=== PATIENT | female | born 1990 | race Caucasian/White ===

== ENCOUNTER 2022-12-01 21:03 | Emergency (ER) | payer MEDICAID, SELFPAY ==
[2022-12-01 21:14] VITALS: BP 182/115; PULSE 101; RESP 18; TEMP 36.8; O2SAT 99; BMI 53.2
--- NOTE | 2022-12-01 21:34 | ED_ITS ---
HPI - General Adult General Chief complaint: Urogenital Problems, Female Stated complaint: Tip of condom broke off inside Time Seen by Provider: 12/01/22 21:06 History of Present Illness HPI narrative: Patient is a 32-year-old female with significantly elevated BMI who presents after using a condom covered dildo for sexual stimulation and concerned that it tip may have broken off of the condom. At this happen last week as well. Once in assessment. She has no vaginal bleeding or discharge. She has been feeling well. Related Data Allergies Allergy/AdvReac Type Severity Reaction Status Date / Time Penicillins Allergy Verified 12/01/22 21:21 Exam Narrative: Exam Narrative: Speculum exam with nurse May present with good visualization shows no evidence of foreign body there is some whitish material in the vaginal vault but no plastic or latex appearing material. Const: Vital Signs, click to edit/add: Vital Signs - 24 hr 12/01/22 21:14 Temperature 98.2 F Pulse Rate [Pulse Oximeter] 101 H Respiratory Rate 18 Blood Pressure [Le ft Upper Arm] 182/115 H Pulse Oximetry 99 Oxygen Delivery Me thod Room Air Course Vital Signs Vital signs: Initial Vital Signs Temperature 98.2 F 12/01/22 21:14 Temperature Source Temporal Artery Scan 12/01/22 21:14 Pulse Rate 101 H 12/01/22 21:14 Pulse Rhythm Regular 12/01/22 21:14 Respiratory Rate 18 12/01/22 21:14 Blood Pressure 182/115 H 12/01/22 21:14 Blood Pressure Mean 137 H 12/01/22 21:14 Blood Pressure Position Sitting 12/01/22 21:14 Pulse Oximetry 99 12/01/22 21:14 Oxygen Delivery Method Room Air 12/01/22 21:14 Vital Signs Temperature 98.2 F 12/01/22 21:14 Pulse Rate 101 H 12/01/22 21:14 Respiratory Rate 18 12/01/22 21:14 Blood Pressure 182/115 H 12/01/22 21:14 Pulse Oximetry 99 12/01/22 21:14 Oxygen Delivery Method Room Air 12/01/22 21:14 Temperature 98.2 F 12/01/22 21:14 Pulse Rate 101 H 12/01/22 21:14 Respiratory Rate 18 12/01/22 21:14 Blood Pressure 182/115 H 12/01/22 21:14 Pulse Oximetry 99 12/01/22 21:14 Oxygen Delivery Method Room Air 12/01/22 21:14 Medical Decision Making MDM Narrative Medical decision making narrative: At this point I recommend the patient she takes several Sitz baths, she could try ice a couple of douches to cleanse the vaginal area. If she has any discharge or odor then she could follow up with primary care or [facility]. At this point I do not detect any foreign matter however and observation that could be appropriate. Discharge Plan Discharge Clinical Impression: Foreign body in vagina Patient Disposition: Home, Self-Care Condition: Stable Additional Instructions: Would recommend Sitz baths and perhaps a couple of douches to cleanse the vaginal area. If notices any odor or other abnormality then recheck with primary care would be recommended, no foreign body noted on speculum exam tonight Activity Level: No Restrictions Discharge Diet: Regular Follow Up/Referrals: Tamela Gillis DO [Primary Care Provider] - Stand Alone [facility] Info Inst[facility]
== END 2022-12-01 22:07 | disposition home or self-care (01) ==
LOC: ED 21:52
PROVIDERS: Emergency Provider Family Medicine; PCP Family Medicine
DX: T19.2XXA Foreign body in vulva and vagina, initial encounter (principal)
CPT/HCPCS: 99282; 99284

== ENCOUNTER 2023-05-19 20:29 | Emergency (ER) | payer MEDICAID, SELFPAY ==
[2023-05-19 21:24] VITALS: BP 150/97; PULSE 78; RESP 18; TEMP 37.1; O2SAT 99; BMI 53.2
--- NOTE | 2023-05-19 23:12 | CRLHL7_ITS ---
For Patients: As a result of the Century Cures Act, medical imaging exams and procedure reports are released immediately into your electronic medical record. You may view this report before your referring provider. If you have questions, please contact your health care provider. INDICATION: Cough TECHNIQUE: Chest 2 view. Permanently recorded images are archived. COMPARISON: None. FINDINGS: Cardiovascular and mediastinum: Heart size and vasculature are normal in caliber and appearance. Lungs and pleural spaces: The lungs are clear. No pleural effusion or pneumothorax. Bones and soft tissues: Unremarkable for age. IMPRESSION: No evidence of an acute pulmonary process. Dictated by Alek Dangelo MD @ 05/20/2023 1:18:43 AM (Electronically Signed)
[2023-05-19 23:40] LABS: Basophils Percent Auto 0.3 % (0.0-3.0); Eosinophils Percent Auto 2.9 % (0.0-7.0); Hemoglobin* 14.9 gm/dL (12.0-16.0); Immature Granulocytes Pct Auto 0.7 %; Lymphocytes Percent Auto 27.1 % (20-44); Mean Corpuscular HGB Conc 32 gm/dL (32-36); Mean Corpuscular Hemoglobin 28 pg (26-34); Mean Corpuscular Volume 87 fL (80-100); Platelet Count* 293 K/uL (140-440); Red Blood Count 5.28 m/uL (4.00-5.20); White Blood Count* 11.46 K/uL (4.50-11.00)
[2023-05-19 23:44] LABS: Slide Review Reflex No
[2023-05-19 23:51] LABS: Chloride* 105 mmol/L (96-114)
[2023-05-19 23:52] LABS: Albumin* 4.3 g/dL (3.3-5.0); Potassium* 3.8 mmol/L (3.6-5.1); Sodium* 142 mmol/L (135-149)
[2023-05-19 23:54] LABS: Anion Gap 14 mEq/L (7-15); Bilirubin Total* 0.5 mg/dL (0.1-1.5); Carbon Dioxide* 23 mmol/L (20-32); Creatinine* 0.7 mg/dL (0.5-1.5); Est. Creatinine Clearance* 113.16; Estimated Glomerular Filt Rate 116 ml/min
[2023-05-19 23:55] LABS: Alanine Aminotransferase* 19 U/L (4-35); Alkaline Phosphatase* 86 U/L (40-150); Aspartate Amino Transferase* 20 U/L (12-35); Blood Urea Nitrogen* 11 mg/dL (5-24); Calcium* 9.6 mg/dL (8.4-10.6); Glucose* 99 mg/dL (60-115); HCG Qualitative Serum* Negative (Negative); Total Protein* 7.9 g/dL (6.0-8.3)
--- NOTE | 2023-05-20 00:27 | ED_ITS ---
HPI - General Adult General Date Seen: 05/19/23 Chief complaint: Unspecified Complaint, Adult Stated complaint: Overexerted herself and feels shakey and jittery Time Seen by Provider: 05/19/23 22:04 History of Present Illness HPI narrative: This is a pleasant 33-year-old female with a past medical history that includes asthma (it sounds like activity induced, only mild). She presents to the ER today with concern that she is very shaky. She also has a cough, headache, nausea, frequent urination. History is provided from the patient in non chronological order. However will be listed chronologically here. Patient has had symptoms of cough and URI for about 3 weeks. Symptoms have included cough, largely nonproductive, nasal congestion, mild sore throat. It sounds like the cough has been persistent for the past few weeks and just isn't getting better. She is not really short of breath. No hemoptysis. No production of sputum. No definite known exposure to coronavirus or other specific infection. Recently,one of the patient's close friends (her ?adoptive mother?) fell ill. It sounds like her adoptive mother abruptly had severe illness and became critically ill, suffered brain damage,. It sounds like she was treated in the hospital for IV antibiotics and it sounds like she had meningitis. However it sounds like she ultimately had a severe brain injury so was transition to comfort care. She 1 week ago today. The patient did go to visit her while she was in the hospital at the [facility] in [place]. Apparently on the date that the patient visited her ?adoptive mother? her adoptive mother was critically ill, but not intubated. There were no clear exposure precautions and the patient was not required to wear a mask or gown. Of the patient does not know what form of meningitis is was that play here. She has not been told that she needs any post exposure prophylaxis. It sounds like she has been a little bit worried, almost subconsciously, all week that she might develop meningitis. It sounds like she was feeling pretty well yesterday morning on Friday morning. The patient took her niece to the world's largest candy store on Friday. They bought a lot of candy and ate a lot of sugary food. They also went to a cafe for lunch yesterday where she ordered 3 specialty coffee drinks for Halloween/fall. The patient does not normally drink much caffeine but drank 3 caffeinated cups of coffee. Yesterday afternoon she began to feel quite shaky. She has a difficult time describing her symptoms but it sounds like a vague shaky or vibrating feeling in her torso and in her body. It is not really palpi tations. It is not really weakness. Is not really shivering or shakes. It is not really clearly rigors or chills. She does feel shaky. She went to the [facility] urgent care in [place] today. She was seen for the cough but not tested with chest x-ray or COVID. She was given prescriptions for prednisone and albuterol. She was told that she probably still has some residual inflammation in her chest from her recent cold. She was worried that she had caused hyperglycemia because of all the sugary food she ate so she tried to do an exercise regimen and drink lots of water to flush out hyperglycemia. She is able to sleep last night. When she woke this morning early she felt like she had to urinate. She got up to go to the bathroom but then was cold, because her house was chilled, and had to take hot shower. She was able to go to work today but was just feeling shaky. She left work early at about 1:00 p.m. and is felt shaky all afternoon. She still has the ongoing cough. No nasal congestion. No sore throat. No definite fever. Today she also developed a mild headache. On the way here to the ER she did have an episode of nonbilious, nonbloody emesis (water and pizza that she had eaten). Now that she is here in the ER she has only a minimal headache. No ongoing nausea. Related Data Allergies Allergy/AdvReac Type Severity Reaction Status Date / Time Penicillins Allergy Mild Hives Verified 05/19/23 21:26 [facility] Social History Smoking Status: Current every day smoker What tobacco products do you use: cigarettes Do you use any of these nicotine containing products: None Second hand tobacco smoke exposure: No How often do you have a drink containing alcohol: 2-4 times a month How many standard drinks containing alcohol do you have on a typical day: 3 or 4 How often do you have six or more drinks on one occasion: Never AUDIT-C Alcohol total score: 3 Non-prescribed substance use: denies use service: No Exam Narrative: Exam Narrative: Constitutional: Appears well-developed and well-nourished. Alert. Conversant. Non toxic. When discussing the of her ?adoptive mother? she does become tearful and upset. HENT: Head: Atraumatic. Nose: Nose normal. No depressed skull fracture, Rac[place] Eyes, Corrales's sign, or hemotympanum. Face normal. Right ear: Small amount of nonpurulent fluid behind the TM. No bulging or erythema. Canal normal Left ear: Small amount of nonpurulent fluid behind the TM. No bulging. No erythema. Canal normal. Mouth/Throat: Oral mucosa is clear and moist. no trismus. Pharynx normal. Tonsils symmetric. No tonsillar enlargement, erythema, or exudate. Eyes: Conjunctivae normal. EOM normal. Pupils equal, round, and reactive to light. No scleral icterus. Neck: Normal range of motion. No stiffness or meningismus. Anterior Neck supple. No tracheal deviation present. Cardiovascular: Normal rate, regular rhythm. No gallop. No friction rub. No murmur heard. Symmetric radial artery pulses Pulmonary/Chest: Effort normal. No stridor. No respiratory distress. No wheezes. No rales. No rhonchi . No tenderness. Abdominal: Soft. Bowel sounds normal. No distension. No mass. No tenderness. No rebound. No guarding. Musculoskeletal: RUE: Normal range of motion. No tenderness. No deformity LUE: Normal range of motion. No tenderness. No deformity RLE: Normal range of motion. No edema. No tenderness. No deformity LLE: Normal range of motion. No edema. No tenderness. No deformity Lymph: No cervical adenopathy. Neurological: Alert and oriented to person, place, and time. Normal strength. CN II-VII intact. No sensory deficit. GCS eye subscore is 4. GCS verbal subscore is 5. GCS motor subscore is 6. Normal coordination Skin: Skin is warm, pink, dry, with normal cap refill. No rashes. No petechiae or purpura. Psych: Patient is very polite. She is a somewhat non chronological historian. Interestingly we spent the 1st several minutes of our discussion with her trying to describe the somewhat indescribable shaky feeling that she is having. Only later due I discovered that she has had a recent cough and that she was at the urgent care this morning. And only deepen were conversation due I discover that the patient's close family member last week of meningitis. The patient is worried that she might have contracted meningitis when she went to visit her adoptive mother. The patient does not really correlate her symptoms of shakiness with grief for anxiety. She is not endorsing depression or thoughts of self-harm or suicide. No evidence for psychosis or hallucinations or paranoia. Const: Vital Signs, click to edit/add: Vital Signs - 24 hr 05/19/23 21:24 05/20/23 01:13 05/20/23 01:14 Temperature 98.8 F 98.4 F 98.4 F Pulse Rate [Right Pulse Oximeter] 78 79 79 Respiratory Rate 18 18 18 Blood Pressure [Ri ght Upper Arm] 150/97 H 132/74 132/74 Pulse Oximetry 99 99 Oxygen Delivery Me thod Room Air Room Air Course Vital Signs Vital signs: Initial Vital Signs Temperature 98.8 F 05/19/23 21:24 Temperature Source Temporal Artery Scan 05/19/23 21:24 Pulse Rate 78 05/19/23 21:24 Respiratory Rate 18 05/19/23 21:24 Blood Pressure 150/97 H 05/19/23 21:24 Blood Pressure Mean 114 H 05/19/23 21:24 Blood Pressure Position Sitting 05/19/23 21:24 Pulse Oximetry 99 05/19/23 21:24 Oxygen Delivery Method Room Air 05/19/23 21:24 Vital Signs Temperature 98.8 F 05/19/23 21:24 Pulse Rate 78 05/19/23 21:24 Respiratory Rate 18 05/19/23 21:24 Blood Pressure 150/97 H 05/19/23 21:24 Pulse Oximetry 99 05/19/23 21:24 Oxygen Delivery Method Room Air 05/19/23 21:24 Temperature 98.4 F 05/20/23 01:14 Pulse Rate 79 05/20/23 01:14 Respiratory Rate 18 05/20/23 01:14 Blood Pressure 132/74 05/20/23 01:14 Pulse Oximetry 99 05/20/23 01:13 Oxygen Delivery Method Room Air 05/20/23 01:13 Medical Decision Making [facility] Narrative Medical decision making narrative: This is a pleasant 33-year-old female who presents for evaluation of cough, body aches, shakiness, headache, nausea and vomiting. Differential is broad. Overall, her 3 week history of cause could be consistent with a viral URI. She is declining COVID swab here in the ER, citing dislike of intranasal swabs. Given duration of her cough we did obtain chest x-ray to look for pneumonia and it is fortunately normal by my read. No classic rash to suggest viral syndrome. No evidence for OM on exam. No pharyngitis. Differential for fever included cellulitis, septic arthritis, osteomyelitis but these are not seen on exam. Abdominal exam is benign, appendicitis/colitis/ intra-abdominal source for fever is unlikely. The patient is smiling, alert, sitting up, and non-toxic, so I do not think sepsis or bacteremia is present. UA not indicated in the absence of any urinary symptoms. Patient was concerned about possible meningitis since her adoptive mother recently from that. Based on my best interpretation of the patient's re ported does not sound like she had a significant ?exposure? that would raise concern that she will need prophylactic post exposure prophylaxis. We discussed the potential for meningitis. She does have a headache but does not have a severe headache. She does not have any altered mental status. No true stiff neck or meningismus. She has a mild leukocytosis which could be related to viral infection. Item non discussed custom the patient. The only definitive way to rule out meningitis would be spinal tap. However at this point I think that the true pretest probability for meningitis is very low. I felt the risk/discomfort of spinal tap including pain at the per procedure site, post spinal headache, but the potential for bleeding or infection, or the potential for an attempted but failed tab, would outweigh the benefit. We discussed that there is risk for clinical deterioration Ng if this were case of true bacterial meningitis but that so unlikely based on her current presentation that recommendation would be careful monitoring over the next few hours rather than immediate spinal tap for now. . At this point the patient is non-toxic, well appearing. This fever is likely due to viral illness. Plan of care includes supportive care with antipyretics, fluids, and watchful waiting at home. Instructions to return for recheck in 12- 18 hours if not improved, or immediately if worsening fever, decreasing oral intake, lethargy, irritability, seizure, or any other concerns. There may also be some component of grief/anxiety under pending her presentation. She did recently experienced the of a close loved one. She was also worried that she might be diabetic because she has been urinating a lot and a lot of sugar a couple of days ago. Blood glucose 99. Lab Data Labs: Lab Results 05/19/23 Range/Units 23:20 WBC 11.46 H (4.50-11.00) K/uL RBC 5.28 H (4.00-5.20) m/uL Hgb 14.9 (12.0-16.0) gm/dL Hct 46.0 (33.0-51.0) % MCV 87 (80-100) fL MCH 28 (26-34) pg MCHC 32 (32-36) gm/dL RDW Coeff of Dionne 13.0 (11.5-15.5) % Plt Count 293 (140-440) K/uL Neut % (Auto) 63.0 (42.0-72.0) % Lymph % (Auto) 27.1 (20-44) % Laurel % (Auto) 6.0 (0.0-11.0) % Eos % (Auto) 2.9 (0.0-7.0) % Baso % (Auto) 0.3 (0.0-3.0) % Neut # (Auto) 7.20 H (1.7-7.0) K/uL Lymph # (Auto) 3.10 H (0.90-2.90) K/uL Laurel # (Auto) 0.70 (0.00-0.90) K/UL Eos # (Auto) 0.30 (0.00-0.50) K/uL Baso # (Auto) 0.00 (0.00-0.30) K/uL Abs Immat Gran (auto) 0.10 (0.00-0.30) K/uL Imm/Tot Granulo (auto) 0.7 % Sodium 142 (135-149) mmol/L Potassium 3.8 (3.6-5.1) mmol/L Chloride 105 (96-114) mmol/L Carbon Dioxide 23 (20-32) mmol/L Anion Gap 14 (7-15) mEq/L BUN 11 (5-24) mg/dL Creatinine 0.7 (0.5-1.5) mg/dL Estimated Creat Clear 113.16 Estimated GFR 116 ml/min Glucose 99 (60-115) mg/dL Calcium 9.6 (8.4-10.6) mg/dL Total Bilirubin 0.5 (0.1-1.5) mg/dL AST 20 (12-35) U/L ALT 19 (4-35) U/L Alkaline Phosphatase 86 (40-150) U/L Total Protein 7.9 (6.0-8.3) g/dL Albumin 4.3 (3.3-5.0) g/dL HCG, Qual Negative (Negative) Imaging Data Chest x-ray: Attestation: I have reviewed the pertinent imaging results. My impression: No evidence for pneumonia Radiologist's impression: IMPRESSION: No evidence of an acute pulmonary process. Discharge Plan Discharge Clinical Impression: Cough, Headache, Nausea Patient Disposition: Home, Self-Care Condition: Stable Instructions: Acute Headache (DC), Acute Cough (ED) Additional Instructions: As we discussed, please come back to the ER immediately if you have worsening symptoms, especially if you have worsening headache, stiff neck, fever, more vomiting, confusion, blurry vision, worsening cough, or trouble breathing. Please follow-up with your regular doctor for recheck within the next 1-2 days. Follow Up/Referrals: Tamela Gillis DO [Primary Care Provider] - Stand Alone Forms: [facility] Info Instructions
[2023-05-20 01:13] VITALS: BP 132/74; PULSE 79; RESP 18; TEMP 36.9; O2SAT 99
[2023-05-20 01:14] VITALS: BP 132/74; PULSE 79; RESP 18; TEMP 36.9
== END 2023-05-20 01:14 | disposition home or self-care (01) ==
PROVIDERS: Emergency Provider Emergency Medicine; PCP Family Medicine
DX: R05.9 Cough, unspecified (principal); R51.9 Headache, unspecified; R11.0 Nausea
CPT/HCPCS: 36415; 71046; 80053; 81025; 84703; 85025; 99283; 99284

== ENCOUNTER 2023-05-29 23:39 | Emergency (ER) | payer MEDICAID, SELFPAY ==
--- NOTE | 2023-05-30 00:31 | ED.FALL ---
HPI - Fall General Time Seen by Provider: 00:39 <Amisha Malik MD - Last Filed: 05/30/23 03:49> Date Seen: 05/30/23 <Amisha Malik MD - Last Filed: 05/30/23 03:49> Chief Complaint: Sore Throat <Amisha Malik MD - Last Filed: 05/30/23 03:49> Stated Complaint: Sore throat, ear pain, headache <Amisha Malik MD - Last Filed: 05/30/23 03:49> Time Seen by Provider: 05/30/23 00:24 <Amisha Malik MD - Last Filed: 05/30/23 03:49> Source: patient, RN notes reviewed and old records reviewed <Amisha Malik MD - Last Filed: 05/30/23 03:49> Mode of arrival: ambulatory <Amisha Malik MD - Last Filed: 05/30/23 03:49> Limitations: no limitations <Amisha Malik MD - Last Filed: 05/30/23 03:49> History of Present Illness HPI Narrative: Mary is a very pleasant 33-year-old female with history of tobacco use and 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 Patient actually had the onset of cold-like symptoms 1 month and 2 days ago. She notes that over the past 2 weeks she really has not gotten better even after prednisone albuterol and doxycycline. She states that she has been irrigating her nose and that the cold-like symptoms seem to be bouncing around between her head nose and ears. In the past 24 hours she has noticed increasing sore throat. She initially had a sore throat a month ago but it went away. It came back last night and it seems to be more red. She notes that in the mornings her eyes somehow times have mattering. She notes that she is actually better during the day when she is moving about but she gets worse at night it or when she is sedentary. She states that she sometimes can smell a burning type smell. She has been seen in the ER previously and in urgent care twice. She notes at a previous ER visit her x-ray looked okay, she had fluid in her ears and her white count was slightly elevated at 11.4. She does not recall being tested for strep and it appears from previous notes she declined a COVID test. Patient has an occasional cough but really no respiratory symptoms. Seems to be more nasal, throat and head As well as bothering her ears. Patient works with animals independently. She lives alone. Unfortunately, her adopted mom a few weeks ago from what they think was meningitis. <Amisha Malik MD - Last Filed: 05/30/23 03:49> Related Data Allergies/Adverse Reactions: Allergies Allergy/AdvReac Type Severity Reaction Status Date / Time Penicillins Allergy Mild Hives Verified 05/19/23 21:26 <Amisha Malik MD - Last Filed: 05/30/23 03:49> Review of Systems Status of ROS: Reports: 6 or more systems reviewed and unremarkable except as noted in History and below <Amisha Malik MD - Last Filed: 05/30/23 03:49> Narrative: Denies as she is on control <Amisha Malik MD - Last Filed: 05/30/23 03:49> Const: Denies: fever or chills <Amisha Malik MD - Last Filed: 05/30/23 03:49> Eyes: Denies: change in vision <Amisha Malik MD - Last Filed: 05/30/23 03:49> ENMT: Reports: throat pain, difficulty swallowing, ear pain and nasal congestion; Denies: hoarseness, swelling of lips/tongue or ear discharge <Amisha Malik MD - Last Filed: 05/30/23 03:49> Cardio: Denies: chest pain, swelling of feet/ankles or shortness of breath with exertion <Amisha Malik MD - Last Filed: 05/30/23 03:49> Resp: Reports: cough; Denies: shortness of breath or wheezing <Amisha Malik MD - Last Filed: 05/30/23 03:49> GI: Reports: difficulty swallowing; Denies: abdominal pain <Amisha Malik MD - Last Filed: 05/30/23 03:49> Integ/Breast: Reports: rash ( Dry hands from bathing habits) <Amisha Malik MD - Last Filed: 05/30/23 03:49> Neuro: Reports: headache; Denies: numbness in extremities or slurred speech <Amisha Malik MD - Last Filed: 05/30/23 03:49> Allergy/Immuno: Denies: wheezing <Amisha Malik MD - Last Filed: 05/30/23 03:49> [facility] [place] Social History: Social History Smoking Status: Current every day smoker What tobacco products do you use: cigarettes Do you use any of these nicotine containing products: None Second hand tobacco smoke exposure: No How often do you have a drink containing alcohol: 2-4 times a month How many standard drinks containing alcohol do you have on a typical day: 3 or 4 How often do you have six or more drinks on one occasion: Never AUDIT-C Alcohol total score: 3 Non-prescribed substance use: denies use service: No <Amisha Malik MD - Last Filed: 05/30/23 03:49> Exam Narrative: Exam Narrative: patient is alert and oriented. Nontoxic in appearance. Seen in room 1. EOM is full and pupils equal round reactive. Facial exam is symmetrical with no obvious swelling. Left TM within normal limits. Right TM has a small amount of fluid but still retains light reflex at the inferior aspect of the TM. No erythema. Neck is supple with full range of motion. No guarding. Oral cavity with moist mucous membranes. Posterior oropharynx without erythema or cobblestoning. Heart with a regular rate and rhythm. Lungs are clear in all lung nicholson with the exception of the right lower lung field which is decreased. I do not auscultate any crackles or wheezing. Abdomen soft. Lower extremity with no calf tenderness. <Amisha Malik MD - Last Filed: 05/30/23 03:49> Const: Vital Signs, click to edit/add: Vital Signs - 24 hr 05/30/23 00:38 Temperature 98.1 F Pulse Rate [Left P ulse Oximeter] 97 Respiratory Rate 20 Blood Pressure [Ri ght Forearm] 126/94 H Pulse Oximetry 97 Oxygen Delivery Me thod Room Air <Amisha Malik MD - Last Filed: 05/30/23 03:49> Vital Signs, click to edit/add: Vital Signs - 24 hr 05/30/23 00:38 Temperature 98.1 F Pulse Rate [Left P ulse Oximeter] 97 Respiratory Rate 20 Blood Pressure [Ri ght Forearm] 126/94 H Pulse Oximetry 97 Oxygen Delivery Me thod Room Air <Anibal Rai MD - Last Filed: 05/30/23 04:48> Documenting provider has reviewed patient's vital signs: yes <Amisha Malik MD - Last Filed: 05/30/23 03:49> Course Course ED Course: At this time will repeat chest x-ray given auscultatory findings. Will also check CBC, CRP, basic. Patient is in agreement to check COVID/RSV/influenza as long as she is able to look at the swab they are using 1st. She is also receptive to a strep test. At this time she certainly could have COVID/RSV/influenza while recovering from viral infection a month ago. It is odd that she had the return of a sore throat last night. In addition she could have sinusitis as this is been ongoing for quite some time. She complains about right facial pressure. <Amisha Malik MD - Last Filed: 05/30/23 03:49> Reevaluation(s) Reevaluation #1: Patient noted that her CRP is elevated at 1.9 and white count at 13.6-previously white count was just over 11. I spoke with patient regarding various avenues of treatment. Initially I talked about a course of Augmentin as doxycycline did not appear to be helpful to her. Unfortunately, she has a penicillin allergy. I then spoke to her about the possibilities of a CT of the sinuses after discussing risks benefits which did include radiation. Alternatively we could use a 3rd generation cephalosporin and clindamycin. At this time after discussion patient elects to do CT. <Amisha Malik MD - Last Filed: 05/30/23 03:49> Reevaluation #2: CT scan shows a septal deviation but no sign of acute infection. She is discharged home with symptomatic care. <Anibal Rai MD - Last Filed: 05/30/23 04:48> Vital Signs Vital signs: Initial Vital Signs Temperature 98.1 F 05/30/23 00:38 Temperature Source Temporal Artery Scan 05/30/23 00:38 Pulse Rate 97 10/20/23 00:38 Pulse Rhythm Regular 05/30/23 00:38 Respiratory Rate 20 05/30/23 00:38 Blood Pressure 126/94 H 05/30/23 00:38 Blood Pressure Mean 104 05/30/23 00:38 Blood Pressure Position Sitting 05/30/23 00:38 Pulse Oximetry 97 05/30/23 00:38 Oxygen Delivery Method Room Air 05/30/23 00:38 Vital Signs Temperature 98.1 F 05/30/23 00:38 Pulse Rate 97 05/30/23 00:38 Respiratory Rate 20 05/30/23 00:38 Blood Pressure 126/94 H 05/30/23 00:38 Pulse Oximetry 97 05/30/23 00:38 Oxygen Delivery Method Room Air 05/30/23 00:38 Temperature 98.1 F 05/30/23 00:38 Pulse Rate 97 05/30/23 00:38 Respiratory Rate 20 05/30/23 00:38 Blood Pressure 126/94 H 05/30/23 00:38 Pulse Oximetry 97 05/30/23 00:38 Oxygen Delivery Method Room Air 05/30/23 00:38 <Amisha Malik MD - Last Filed: 05/30/23 03:49> Initial Vital Signs Temperature 98.1 F 05/30/23 00:38 Temperature Source Temporal Artery Scan 05/30/23 00:38 Pulse Rate 97 05/30/23 00:38 Pulse Rhythm Regular 05/30/23 00:38 Respiratory Rate 20 05/30/23 00:38 Blood Pressure 126/94 H 05/30/23 00:38 Blood Pressure Mean 104 05/30/23 00:38 Blood Pressure Position Sitting 05/30/23 00:38 Pulse Oximetry 97 05/30/23 00:38 Oxygen Delivery Method Room Air 05/30/23 00:38 Vital Signs Temperature 98.1 F 05/30/23 00:38 Pulse Rate 97 05/30/23 00:38 Respiratory Rate 20 05/30/23 00:38 Blood Pressure 126/94 H 05/30/23 00:38 Pulse Oximetry 97 05/30/23 00:38 Oxygen Delivery Method Room Air 05/30/23 00:38 Temperature 98.1 F 05/30/23 00:38 Pulse Rate 97 05/30/23 00:38 Respiratory Rate 20 05/30/23 00:38 Blood Pressure 126/94 H 05/30/23 00:38 Pulse Oximetry 97 05/30/23 00:38 Oxygen Delivery Method Room Air 05/30/23 00:38 <Anibal Rai MD - Last Filed: 05/30/23 04:48> MDM - Fall MDM Narrative Medical decision making narrative: 1. URI-at this time I suspect patient has new virus as she is recovering from previous. She has tested negative for COVID/RSV/influenza. We discussed treatment with 2nd antibiotic versus CT and patient has elected to go ahead with CT. We did discuss radiation risk. If positive, will treat with antibiotics. If negative, watchful waiting. No evidence of meningitis, sepsis, life-threatening illness at this time. 2. Disposition-this case will be signed out to my partner Dr. Rai for disposition. <Amisha Malik MD - Last Filed: 05/30/23 03:49> Medical Records Attestation: I reviewed the patient's medical records. <Amisha Malik MD - Last Filed: 05/30/23 03:49> Lab Data Attestation: I reviewed the patient's lab results. <Amisha Malik MD - Last Filed: 05/30/23 03:49> Labs: Lab Results 05/30/23 05/30/23 05/30/23 Range/Units 00:58 01:05 02:05 WBC 13.64 H (4.50-11.00) K/uL RBC 5.04 (4.00-5.20) m/uL Hgb 14.4 (12.0-16.0) gm/dL Hct 44.2 (33.0-51.0) % MCV 88 (80-100) fL MCH 29 (26-34) pg MCHC 33 (32-36) gm/dL RDW Coeff of Dionne 13.6 (11.5-15.5) % Plt Count 251 (140-440) K/uL Neut % (Auto) 69.9 (42.0-72.0) % Lymph % (Auto) 20.6 (20-44) % [place] % (Auto) 6.4 (0.0-11.0) % Eos % (Auto) 2.8 (0.0-7.0) % Baso % (Auto) 0.2 (0.0-3.0) % Neut # (Auto) 9.50 H (1.7-7.0) K/uL Lymph # (Auto) 2.80 (0.90-2.90) K/uL [place] # (Auto) 0.90 (0.00-0.90) K/UL Eos # (Auto) 0.40 (0.00-0.50) K/uL Baso # (Auto) 0.00 (0.00-0.30) K/uL Abs Immat Gran (auto) 0.00 (0.00-0.30) K/uL Imm/Tot Granulo (auto) 0.1 % Sodium 140 (135-149) mmol/L Potassium 3.7 (3.6-5.1) mmol/L Chloride 109 (96-114) mmol/L Carbon Dioxide 25 (20-32) mmol/L Anion Gap 6 L (7-15) mEq/L BUN 15 (5-24) mg/dL Creatinine 0.7 (0.5-1.5) mg/dL Estimated Creat Clear 109.08 Estimated GFR 116 ml/min Glucose 96 (60-115) mg/dL Calcium 8.9 (8.4-10.6) mg/dL C-Reactive Protein 1.9 H (0.5-1.0) mg/dL SARS-CoV-2 (PCR) Negative SARS-CoV-2 (Negative) Influenza Type A (PCR) Negative PCR FLU A (Negative) Influenza Type B (PCR) Negative PCR FLU B (Negative) RSV (PCR) Negative PCR RSV (Negative) Group A Strep DNA NOT DETECTED (Not Detectd) <Amisha Malik MD - Last Filed: 05/30/23 03:49> Lab Results 05/30/23 05/30/23 05/30/23 Range/Units 00:58 01:05 02:05 WBC 13.64 H (4.50-11.00) K/uL RBC 5.04 (4.00-5.20) m/uL Hgb 14.4 (12.0-16.0) gm/dL Hct 44.2 (33.0-51.0) % MCV 88 (80-100) fL MCH 29 (26-34) pg MCHC 33 (32-36) gm/dL RDW Coeff of Dionne 13.6 (11.5-15.5) % Plt Count 251 (140-440) K/uL Neut % (Auto) 69.9 (42.0-72.0) % Lymph % (Auto) 20.6 (20-44) % [place] % (Auto) 6.4 (0.0-11.0) % Eos % (Auto) 2.8 (0.0-7.0) % Baso % (Auto) 0.2 (0.0-3.0) % Neut # (Auto) 9.50 H (1.7-7.0) K/uL Lymph # (Auto) 2.80 (0.90-2.90) K/uL [place] # (Auto) 0.90 (0.00-0.90) K/UL Eos # (Auto) 0.40 (0.00-0.50) K/uL Baso # (Auto) 0.00 (0.00-0.30) K/uL Abs Immat Gran (auto) 0.00 (0.00-0.30) K/uL Imm/Tot Granulo (auto) 0.1 % Sodium 140 (135-149) mmol/L Potassium 3.7 (3.6-5.1) mmol/L Chloride 109 (96-114) mmol/L Carbon Dioxide 25 (20-32) mmol/L Anion Gap 6 L (7-15) mEq/L BUN 15 (5-24) mg/dL Creatinine 0.7 (0.5-1.5) mg/dL Estimated Creat Clear 109.08 Estimated GFR 116 ml/min Glucose 96 (60-115) mg/dL Calcium 8.9 (8.4-10.6) mg/dL C-Reactive Protein 1.9 H (0.5-1.0) mg/dL SARS-CoV-2 (PCR) Negative SARS-CoV-2 (Negative) Influenza Type A (PCR) Negative PCR FLU A (Negative) Influenza Type B (PCR) Negative PCR FLU B (Negative) RSV (PCR) Negative PCR RSV (Negative) Group A Strep DNA NOT DETECTED (Not Detectd) <Anibal Rai MD - Last Filed: 05/30/23 04:48> Imaging Data Chest x-ray: Attestation: I have reviewed the pertinent imaging results. <Amisha Malik MD - Last Filed: 05/30/23 03:49> My impression: I do not note any pneumonia. <Amisha Malik MD - Last Filed: 05/30/23 03:49> Radiologist's impression: Mediastinum: The mediastinum is normal in appearance. The heart silhouette is normal in size and morphology. Lung: Both lungs are unremarkable in appearance. No sign of pleural effusion seen. No pneumothorax is identified. Bone and Soft tissue: Unremarkable for age. IMPRESSION: 1. No acute cardiopulmonary disease is seen. <Amisha Malik MD - Last Filed: 05/30/23 03:49> ECG Data ECG interpretation date: 05/30/23 <Amisha Malik MD - Last Filed: 05/30/23 03:49> Discharge Plan Discharge Clinical Impression: Acute viral syndrome <Amisha Malik MD - Last Filed: 05/30/23 03:49> Patient Disposition: Home, Self-Care <Amisha Malik MD - Last Filed: 05/30/23 03:49> Condition: Stable <Amisha Malik MD - Last Filed: 05/30/23 03:49> Additional Instructions: Your tests for COVID, influenza, strep, RSV, pneumonia, sinusitis are all normal. You have a viral illness that will resolve on its own. Rest, push fluids, use Tylenol or ibuprofen for pain. You can use a decongestant such as Sudafed or Afrin nasal spray. Run a humidifier. Follow-up with your clinic doctor in 3-5 days if no improvement. <Amisha Malik MD - Last Filed: 05/30/23 03:49> Follow Up/Referrals: Tamela Gillis, DO [Primary Care Provider] - <Amisha Malik MD - Last Filed: 05/30/23 03:49> Stand Alone Forms: MyHealth Info Instructions <Amisha Malik MD - Last Filed: 05/30/23 03:49>
[2023-05-30 00:38] VITALS: BP 126/94; PULSE 97; RESP 20; TEMP 36.7; O2SAT 97; BMI 53.4
--- NOTE | 2023-05-30 00:58 | CRLHL7_ITS ---
For Patients: As a result of the Cures Act, medical imaging exams and procedure reports are released immediately into your electronic medical record. You may view this report before your referring provider. If you have questions, please contact your health care provider. INDICATION: Right lower lobe decreased breath sounds TECHNIQUE: Chest radiograph 2 views COMPARISON: 05/20/2023 FINDINGS: Mediastinum: The mediastinum is normal in appearance. The heart silhouette is normal in size and morphology. Lung: Both lungs are unremarkable in appearance. No sign of pleural effusion seen. No pneumothorax is identified. Bone and Soft tissue: Unremarkable for age. IMPRESSION: 1. No acute cardiopulmonary disease is seen. Dictated by: Jeremy Cabral MD @ 05/30/2023 02:09:17 (Electronically Signed)
--- NOTE | 2023-05-30 01:08 | ED.NURSE ---
Patient allowed nasal swab, but is c/o a stinging sensation and crying in room.
[2023-05-30 01:48] LABS: PCR FLU A Negative PCR FLU A (Negative); PCR FLU B Negative PCR FLU B (Negative); PCR RSV Negative PCR RSV (Negative)
[2023-05-30 02:12] LABS: Basophils Percent Auto 0.2 % (0.0-3.0); Eosinophils Percent Auto 2.8 % (0.0-7.0); Hematocrit 44.2 % (33.0-51.0); Hemoglobin* 14.4 gm/dL (12.0-16.0); Immature Granulocytes Pct Auto 0.1 %; Lymphocytes Percent Auto 20.6 % (20-44); Mean Corpuscular HGB Conc 33 gm/dL (32-36); Mean Corpuscular Hemoglobin 29 pg (26-34); Mean Corpuscular Volume 88 fL (80-100); Monocytes Percent Auto 6.4 % (0.0-11.0); Neutrophils Percent Auto 69.9 % (42.0-72.0); Platelet Count* 251 K/uL (140-440); RDW Coefficient of Variation % 13.6 % (11.5-15.5); Red Blood Count 5.04 m/uL (4.00-5.20); White Blood Count* 13.64 K/uL (4.50-11.00)
[2023-05-30 02:16] LABS: SARS PCR* Negative SARS-CoV-2 (Negative)
[2023-05-30 02:17] LABS: Slide Review Reflex No
[2023-05-30 02:29] LABS: Chloride* 109 mmol/L (96-114); Potassium* 3.7 mmol/L (3.6-5.1); Sodium* 140 mmol/L (135-149)
[2023-05-30 02:32] LABS: Anion Gap 6 mEq/L (7-15); Blood Urea Nitrogen* 15 mg/dL (5-24); Carbon Dioxide* 25 mmol/L (20-32); Creatinine* 0.7 mg/dL (0.5-1.5); Est. Creatinine Clearance* 109.08; Estimated Glomerular Filt Rate 116 ml/min
[2023-05-30 02:33] LABS: Calcium* 8.9 mg/dL (8.4-10.6); Glucose* 96 mg/dL (60-115)
[2023-05-30 02:35] LABS: C Reactive Protein* 1.9 mg/dL (0.5-1.0)
[2023-05-30 02:39] LABS: Strep A DNA Probe* NOT DETECTED (Not Detectd)
--- NOTE | 2023-05-30 03:40 | CRLHL7_ITS ---
For Patients: As a result of the Century Cures Act, medical imaging exams and procedure reports are released immediately into your electronic medical record. You may view this report before your referring provider. If you have questions, please contact your health care provider. Indication: Elevated white count and facial pain/congestion Technique: CT of the paranasal sinuses without contrast. Coronal and sagittal reformatted images. Bone and soft tissue algorithms. Comparison: None. Findings: Frontal sinuses: The frontal sinuses and frontal recesses are clear. 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 Symmetric depths of the olfactory fossa. The anterior ethmoidal arteries are well-covered by bone. Sphenoid sinuses: The sphenoid sinuses and ostia are clear. No optic canal or carotid canal dehiscence. Maxillary sinuses: Trace mucosal thickening along the posadas of the maxillary sinuses. The osteomeatal units are clear. Nasal cavity: Rightward deviation of the nasal septum. No karla bullosa. No paradoxical turbinates. Skullbase, maxilla, TMJ: No lytic or blastic osseous lesions. No periapical tooth lucencies. Mastoid air cells are clear. Incidental tonsilliths in the palatine tonsils. Partial ossification of both stylohyoid ligaments, right greater than left, incidentally noted. Orbital contents: Unremarkable Imaged intracranial contents: Unremarkable Imaged soft tissues structures: Unremarkable IMPRESSION: 1. Trace mucosal thickening along the posadas of the maxillary sinuses. The ostiomeatal units are clear. 2. The frontal sinuses, ethmoid air cells, and sphenoid sinuses are clear. 3. Rightward deviation of the nasal septum. Please note that all CT scans at this facility use dose modulation, iterative reconstruction, and/or weight-based dosing when appropriate to reduce radiation dose to as low as reasonably achievable. Dictated by Anibal Castillo MD @ 05/30/2023 8:29:19 AM (Electronically Signed)
== END 2023-05-30 05:11 | disposition home or self-care (01) ==
PROVIDERS: Emergency Provider Family Medicine; PCP Family Medicine
DX: B34.9 Viral infection, unspecified (principal)
CPT/HCPCS: 36415; 70486; 71046; 80048; 85025; 86140; 87631; 87651; 99283; 99284; 99285

== ENCOUNTER 2024-04-12 19:23 | Emergency (ER) | payer MEDICAID, SELFPAY ==
[2024-04-12 19:31] VITALS: BP 164/94; PULSE 71; RESP 14; TEMP 36.9; O2SAT 98; BMI 56.3
--- NOTE | 2024-04-12 21:02 | ED_ITS ---
HPI - General Adult General Chief complaint: Back Injury/Pain Stated complaint: Back pain Time Seen by Provider: 04/12/24 19:51 History of Present Illness HPI narrative: This is a pleasant 33-year-old female with a history of lumbar disc herniation (apparently dating back to late high school age) with occasional flares of low back pain over the years. She used to have a lot of trouble with lower back but has been having less and less frequent episodes of low back pain over the past couple of years. It sounds like she has had a couple of epidural steroid injections in the past, but none for a few years. She also cells the that previously with episodes of low back pain she went to a local urgent care where they gave her ?a shot? into the muscles of her low back which helped significantly to relieve her pain. She notes that she did a lot of unusual activity and housecleaning last week including several loads of laundry and caring objects around the house. No other recent injury or fall. When she woke up Friday morning, 3 days ago she was having pain in her low back, predominantly in the right lumbar paraspinous muscles. Pain has been persistent since then. It does not radiate down her legs, upper into her kidney, or into her chest. No pain radiating into her ant erior abdomen. No urinary symptoms. Bowel movements have been normal. No numbness or tingling or weakness or pain down her legs. She feels like she tweaked the muscles in her low back. She has been trying to treat her back with her typical regimen of acetaminophen, ibuprofen, massage, stretching. She has been using some Flexeril that was left over from 2021. However none of those interventions are really helping. She also notes that she had some anterior abdominal pain a couple of weeks ago and was seen at her doctor's office and apparently had a reassuring workup and a gallbladder ultrasound that showed normal gallbladder, normal liver, normal pancreas, and normal right kidney. She is now on a proton pump inhibitor to treat for when her doctor presumes was a stomach acid problem She came to the ER tonight hoping we could do this shot in her low back that was effective in relieving her pain previously. Related Data Home Medications ?Medication ?Instructions ?Recorded ?Confirmed cyclobenzaprine 10 mg tablet 10 mg PO TID PRN 04/12/24 04/12/24 Allergies Allergy/AdvReac Type Severity Reaction Status Date / Time Penicillins Allergy Mild Hives Verified 04/12/24 19:30 [facility] Social History Smoking Status: Former smoker How often do you have a drink containing alcohol: monthly or less How often do you have six or more drinks on one occasion: Never AUDIT-C Alcohol total score: 1 Non-prescribed substance use: denies use service: No Exam Narrative: Exam Narrative: Constitutional: Appears well-developed and well-nourished. Alert. Conversant. Non toxic. Lying back on her exam chair in ER room 4. She is polite and remembers me from a previous visit. Because of her back pain she has trouble sitting up. HENT: Head: Atraumatic. Nose: Nose normal. Mouth/Throat: Oral mucosa is clear and moist. no trismus. Eyes: Conjunctivae normal. EOM normal. Pupils equal, round, and reactive to light. No scleral icterus. Neck: Normal range of motion. Neck supple. No tracheal deviation present. Cardiovascular: Normal rate, regular rhythm. No gallop. No friction rub. No murmur heard. Symmetric radial artery pulses Pulmonary/Chest: Effort normal. No stridor. No respiratory distress. No wheezes. No rales. No rhonchi . No tenderness. Abdominal: Soft. Bowel sounds normal. No distension. No mass. No tenderness. No rebound. No guarding. Musculoskeletal: She rolls over for back exam. There is no rash, shingles on the back. No posterior midline tenderness. No step-off. No bony crepitus of the thoracic or lumbar spine. Pelvis is stable. Posterior pelvis nontender. RUE: Normal range of motion. No tenderness. No deformity LUE: Normal range of motion. No tenderness. No deformity RLE: Normal range of motion. No edema. No tenderness. No deformity LLE: Normal range of motion. No edema. No tenderness. No deformity Neurological: Alert and oriented to person, place, and time. Normal strength. CN II-VII intact. No sensory deficit. GCS eye subscore is 4. GCS verbal subscore is 5. GCS motor subscore is 6. Normal coordination Sensory: Normal light touch sensation bilaterally on the anteromedial thigh (L3), medial malleolus (L4), dorsal first web space (L5), lateral malleolus (S1). Strength: 5/5 strength hip flexors (L3) on the rig ht and left 5/5 strength in the quadriceps (L4) on t he right and left 5/5 strength in the tibialis anterior 5/5 strength in the EHL (L5) on the righ t and left 5/5 strength in the gastrocnemius (S1) o n the right and left 5/5 strength in the hamstring on the rig ht and left Negative straight leg raise bilaterally. Skin: Skin is warm and dry. No rash noted. No pallor. Normal capillary refill. Psychiatric: Normal mood. Normal affect. Const: Vital Signs, click to edit/add: Vital Signs - 24 hr 04/12/24 19:31 Temperature 98.4 F Pulse Rate [Pulse Oximeter] 71 Respiratory Rate 14 Blood Pressure [Ri ght Forearm] 164/94 H Pulse Oximetry 98 Oxygen Delivery Me thod Room Air Course Course ED Course: Recheck-patient reports marginal improvement after receiving intramuscular Toradol. She has been able to get out of bed and go to the bathroom. Legs moving normally. No footdrop. Discussed options for further analgesia. She came to the ER hoping we would give her a shot directly in her low back to help alleviate her pain. I am not a qualified to do low back injections or JOSE. She understands this. Therefore will have to offer other methods of pain control. She does not want to call for ride home. Therefore will send her home with prescriptions for [place] and Flexeril (both via [employer]) that she can take at home when she gets there tonight. She understands opiate and sedation precautions. Vital Signs Vital signs: Initial Vital Signs Temperature 98.4 F 04/12/24 19:31 Temperature Source Temporal Artery Scan 04/12/24 19:31 Pulse Rate 71 04/12/24 19:31 Pulse Rhythm Regular 04/12/24 19:31 Respiratory Rate 14 04/12/24 19:31 Blood Pressure 164/94 H 04/12/24 19:31 Blood Pressure Mean 117 H 04/12/24 19:31 Blood Pressure Position Sitting 04/12/24 19:31 Pulse Oximetry 98 04/12/24 19:31 Oxygen Delivery Method Room Air 04/12/24 19:31 Vital Signs Temperature 98.4 F 04/12/24 19:31 Pulse Rate 71 04/12/24 19:31 Respiratory Rate 14 04/12/24 19:31 Blood Pressure 164/94 H 04/12/24 19:31 Pulse Oximetry 98 04/12/24 19:31 Oxygen Delivery Method Room Air 04/12/24 19:31 Temperature 98.4 F 04/12/24 19:31 Pulse Rate 71 04/12/24 19:31 Respiratory Rate 14 04/12/24 19:31 Blood Pressure 164/94 H 04/12/24 19:31 Pulse Oximetry 98 04/12/24 19:31 Oxygen Delivery Method Room Air 04/12/24 19:31 Medications Administered Medications: Discontinued Medications Generic Name Dose Route Start Last Admin Trade Name Marcelino PRN Reason Stop Dose Admin Ketorolac Tromethamine 30 mg 04/12/24 20:54 04/12/24 21:10 Ketorolac 30 Mg/Ml Inj IM 04/12/24 20:55 30 mg ONCE ONE Administration Medical Decision Making [facility] Narrative Medical decision making narrative: This patient presented with back pain. Broad differential considered. The patient did not sustain any trauma, therefore x-rays are not necessary due to the low likelihood of fracture or subluxation. No red flag symptoms to suggest CT and/or MRI is indicated at this point. The patient has not had a fever, saddle/perineal anesthesia, bilateral foot numbness, or bowel or bladder dysfunction. There is no clinical evidence of cauda equina syndrome, discitis, spinal/epidural space hematoma or epidural abscess. The neurological exam is normal and the patient's symptoms seem consistent with a musculoskeletal issues and significant muscle spasm. Pain has only slightly improved with interventions in the emergency department. She will little additional muscle relaxers and pain killers at home ([employer] for [place] and Flexeril). Opiate precautions reviewed. The patient will be discharged with pain medications to use as directed. Ice or heat to the back and stretching exercises. No heavy lifting, b ending or twisting. Return if increasing pain, numbness, weakness, or bowel or bladder dysfunction. The patient was advised to schedule follow-up with their primary doctor within 2-3 days to re-assess symptoms. Return precautions reviewed and questions answered. Discharge Plan Discharge Clinical Impression: Low back pain Patient Disposition: Home, Self-Care Condition: Stable Instructions: Acute Low Back Pain (ED) Additional Instructions: As we discussed, use caution with muscle relaxers and pain killers. Both of these medications can cause drowsiness, dizziness. You should not drive for 6 hours after taking sedating medications. Please come back to the ER right away if you have worsening or uncontrolled pain, disturbance in the function of your bladder or bowels, high fever, numbness or weakness down your leg, or if you have any other problems. If you are not completely improved, please recheck with your doctor within 2-3 days Activity Level: No Restrictions Discharge Diet: Regular Prescriptions: No Action cyclobenzaprine 10 mg tablet 10 mg PO TID PRN Follow Up/Referrals: Tamela Gillis DO [Primary Care Provider] - Stand Alone Forms: [employer] Info Instructions
[2024-04-12] MEDS: KETOROLAC 30 MG/ML inj IM (21:10)
== END 2024-04-12 21:59 | disposition home or self-care (01) ==
PROVIDERS: Emergency Provider Emergency Medicine; PCP Family Medicine
DX: M54.50 Low back pain, unspecified (principal)
CPT/HCPCS: 96372; 99282; 99283; 99284; J1885

== ENCOUNTER 2024-04-13 17:44 | Emergency (ER) | payer MEDICAID, SELFPAY ==
[2024-04-13 18:24] VITALS: BP 141/64; PULSE 87; RESP 28; TEMP 37.3; O2SAT 99; BMI 56.3
--- NOTE | 2024-04-13 19:01 | ED.GENADULT ---
HPI - General Adult General Chief complaint: Back Injury/Pain Stated complaint: lower back pain Time Seen by Provider: 04/13/24 18:47 Source: patient Mode of arrival: ambulatory Limitations: no limitations History of Present Illness HPI narrative: 33-year-old female presenting today with low back pain. Patient was seen here yesterday for the same concerns and she was seen in the orthopedic urgent care earlier today. She has been given hydrocodone, Flexeril, prednisone. She received a dose of Toradol in the ER yesterday and that did help her. She believes that the higher home does not help at all. She has not started the prednisone yet. She states that she is here for ?pain control?. She states that she had a shot in her lower back several years ago and that was the only thing that helped. She believes it was an ?ibuprofen shot into her spine?. She states that it was not a steroid shot and it was not an epidural shot and she is adamant about this. The back pain has not changed since yesterday. Right side is worse than the left. No fevers, chills, vomiting. No loss of bowel or bladder function. Pain does not radiate down her legs. Related Data Home Medications ?Medication ?Instructions ?Recorded ?Confirmed cyclobenzaprine 10 mg tablet 10 mg PO TID PRN 04/12/24 04/12/24 Allergies Allergy/AdvReac Type Severity Reaction Status Date / Time Penicillins Allergy Mild Hives Verified 04/13/24 18:31 Review of Systems Status of ROS: Reports: 10 or more systems reviewed and unremarkable except as noted in History and below PFSH PFS Social History Smoking Status: Former smoker How often do you have a drink containing alcohol: monthly or less How often do you have six or more drinks on one occasion: Never AUDIT-C Alcohol total score: 1 Non-prescribed substance use: denies use service: No Exam Narrative: Exam Narrative: Morbidly obese patient, tearful when she has to move. Lying on her back in the exam room. Alert and oriented x3. Answers questions appropriately. Patient speaks in full sentences without needing to catch their breath. HEENT: Normocephalic atraumatic. Pupils are equally round reactive to light. Extraocular muscles are intact. Conjunctivae are moist without any icterus noted. Moist mucous membranes. Back: Normal appearance. She has no tenderness over the thoracic or lumbar spine. She has areas of tenderness of the paraspinal musculature of the lumbar spine. There is no swelling or erythema noted. She is able to roll over in bed without assistance. Strength is 5/5 of the upper lower extremities. Const: Vital Signs, click to edit/add: Vital Signs - 24 hr 04/13/24 18:24 Temperature 99.2 F Pulse Rate [Pulse Oximeter] 87 Respiratory Rate 28 H Blood Pressure [Ri ght Upper Arm] 141/64 H Pulse Oximetry 99 Oxygen Delivery Me thod Room Air Course Course ED Course: Discussed with the patient that we generally do not inject NSAIDs into the spine certainly not in the ER setting. We discussed trying trigger point injections with lidocaine which she would like to attempt. We discussed the possibility of infection any time we break skin patient understands. She therefore patient rolled onto her left and we identified 2 very tender spots on her right lower back. Areas were cleaned in the usual sterile manner and 1 mL of lidocaine was injected into both areas. She then rolled to the other side were re-identified another tender area on the left and 1 mL of lidocaine was injected into that area after it was cleaned in the usual sterile manner. All 3 places were dressed with bandages. She stated that this did take the edge off her pain she was feeling better. We then followed up with a dose of IM Toradol. We discussed sending the patient home with Toradol as seems to be the medication that works best for her, however she stated that her stomach is always upset and she did not wish to have this at this time. Therefore, patient will continue with [id number] treatment, will start her prednisone, use hydrocodone as needed and follow up with her primary care provider. Vital Signs Vital signs: Initial Vital Signs Temperature 99.2 F 04/13/24 18:24 Temperature Source Temporal Artery Scan 04/13/24 18:24 Pulse Rate 87 04/13/24 18:24 Respiratory Rate 28 H 04/13/24 18:24 Blood Pressure 141/64 H 04/13/24 18:24 Blood Pressure Mean 89 04/13/24 18:24 Blood Pressure Position Sitting 04/13/24 18:24 Pulse Oximetry 99 04/13/24 18:24 Oxygen Delivery Method Room Air 04/13/24 18:24 Vital Signs Temperature 99.2 F 04/13/24 18:24 Pulse Rate 87 04/13/24 18:24 Respiratory Rate 28 H 04/13/24 18:24 Blood Pressure 141/64 H 04/13/24 18:24 Pulse Oximetry 99 04/13/24 18:24 Oxygen Delivery Method Room Air 04/13/24 18:24 Temperature 99.2 F 04/13/24 18:24 Pulse Rate 87 04/13/24 18:24 Respiratory Rate 28 H 04/13/24 18:24 Blood Pressure 141/64 H 04/13/24 18:24 Pulse Oximetry 99 04/13/24 18:24 Oxygen Delivery Method Room Air 04/13/24 18:24 Medical Decision Making MDM Narrative Medical decision making narrative: Acute on chronic low back pain. Appears to be musculoskeletal in nature. Plan per above. Discharge Plan Discharge Clinical Impression: Low back pain Patient Disposition: Home, Self-Care Condition: Stable Additional Instructions: Follow-up with your primary care team as needed. Prescriptions: No Action cyclobenzaprine 10 mg tablet 10 mg PO TID PRN Follow Up/Referrals: Tamela Gillis DO [Primary Care Provider] - Stand Alone Forms: MyHealth Info Instructions
[2024-04-13] MEDS: lidocaine HCL 2 % MULTIDOSE 20 ML VIAL INJECTION (19:03)
[2024-04-13] MEDS: KETOROLAC 30 MG/ML inj 60 MG IM (19:23)
[2024-04-13 20:03] VITALS: BP 141/64; PULSE 87; RESP 28; TEMP 37.3
== END 2024-04-13 20:04 | disposition home or self-care (01) ==
LOC: ED 19:31
PROVIDERS: Emergency Provider Family Medicine; PCP Family Medicine
DX: M54.50 Low back pain, unspecified (principal)
CPT/HCPCS: 20552; 96372; 99283; 99284; J1885